=== PATIENT | male | born 1945 | race Caucasian/White ===

== ENCOUNTER 2019-12-02 06:30 | Day surgery (SDC) | payer MEDICARE ==
[2019-12-02] MEDS ORDERED: Lactated Ringers 1,000 ML IV ONE (06:57)
[2019-12-02] MEDS ORDERED: Lactated Ringers 1,000 ML IV SCH (07:00)
[2019-12-02] MEDS ORDERED: DIPRIVAN 200 MG/20 ML IV ONE ×2 (07:57→08:07)
--- NOTE | 2019-12-02 08:41 | OP ---
SURGERY DATE/TIME: 12/02/2019 0755 PREOPERATIVE DIAGNOSES: 1) History of gastric polyps. 2) History of colon polyps. POSTOPERATIVE DIAGNOSES: 1) Normal EGD. 2) Normal colonoscopy. PROCEDURES: 1) EGD. 2) Colonoscopy. SURGEON: Tian Patton M.D. ANESTHESIA: MAC by Raul Hope CRNA. ESTIMATED BLOOD LOSS: None. SPECIMENS: None. DESCRIPTION OF PROCEDURE: After informed written consent was obtained, the patient was taken to the endoscopy suite. A bite block was inserted and he was placed in left lateral decubitus position. The endoscope was inserted under direct visualization in the posterior oropharynx after adequate level of anesthesia was titrated. Esophageal mucosa had normal appearance upon entry into the gastric cavity. The gastroesophageal junction likewise appeared normal. All mucosal structures in the gastric cavity were noted to be free of any lesions or defects. Pylorus traversed and duodenum likewise had a normal mucosal appearance free of any lesions or defects. Upon withdrawal again all mucosal structures were carefully inspected with no obvious lesions or abnormalities. The scope was removed and the scopes were switched. The bite block was removed. Digital rectal exam showed normal sphincter tone and no internal lesions. The colonoscope was inserted in the rectum and sequentially the entire colonic mucosa was traversed. The level of cecum was reached and verified with direct visualization of ileocecal valve. Upon withdrawal careful mucosal inspection revealed no gross abnormalities. Prior to withdrawal retroflexion was performed and showed no internal lesions. The prep was noted to be good. The scope was removed and the patient was transferred to the recovery room in good condition.
[2019-12-02 08:46] VITALS: PULSE 68
[2019-12-02 09:24] VITALS: BP 138/71; O2SAT 97
== END 2019-12-02 09:35 | disposition home or self-care (01) ==
LOC: SDC 06:30
PROVIDERS: ATTEND Family Medicine
DX: Z09 Encounter for follow-up examination after completed treatment for conditions other than malignant neoplasm (principal); E11.9 Type 2 diabetes mellitus without complications; Z86.010 Personal history of colon polyps; Z87.19 Personal history of other diseases of the digestive system; I10 Essential (primary) hypertension
CPT/HCPCS: 82962; 99100; J2704